=== PATIENT | female | born 1980 | race Caucasian/White ===

== ENCOUNTER 2021-12-24 14:01 | Outpatient (CLI) | payer OTHER, SELFPAY ==
[2021-12-24 22:17] LABS: SARS PCR* POSITIVE SARS-CoV-2 (Negative)
[2021-12-24 22:42] LABS: C Reactive Protein* 1.2 mg/dL (0.5-1.0)
[2021-12-24 22:58] LABS: Erythrocyte SedimentationRate* 8 mm/hr (2-20)
[2021-12-24 23:08] LABS: Eosinophils Percent Auto 2.3 % (0.0-7.0); Hematocrit 43.8 % (33.0-51.0); Hemoglobin* 15.3 gm/dL (12.0-16.0); Lymphocytes Percent Auto 27.8 % (20-44); Mean Corpuscular HGB Conc 35 gm/dL (32-36); Mean Corpuscular Hemoglobin 30 pg (26-34); Mean Corpuscular Volume 84 fL (80-100); Monocytes Percent Auto 18.5 % (0.0-11.0); Neutrophils Percent Auto 50.4 % (42.0-72.0); Platelet Count* 242 K/uL (140-440); RDW Coefficient of Variation % 12.3 % (11.5-15.5); Red Blood Count 5.19 m/uL (4.00-5.20)
[2021-12-24 23:16] LABS: Slide Review Reflex No
== END 2021-12-24 14:02 | disposition home or self-care (01) ==
PROVIDERS: PCP Nurse Practitioner Family; Visit Provider Nurse Practitioner Family
DX: R51.9 Headache, unspecified (principal); R50.9 Fever, unspecified; U07.1 COVID-19
CPT/HCPCS: 36415; 85025; 85651; 86140; 87635

== ENCOUNTER 2022-01-31 11:05 | Outpatient (CLI) | payer OTHER, SELFPAY | END 2022-01-31 11:06 | disposition home or self-care (01) | LOC: KYNREF 11:05 | PROVIDERS: PCP Nurse Practitioner Family; Visit Provider Nurse Practitioner Family | DX: N39.0 Urinary tract infection, site not specified (principal) | CPT/HCPCS: 87086; 87186 ==

== ENCOUNTER 2023-01-06 09:21 | Outpatient (CLI) | payer OTHER, SELFPAY | END 2023-01-06 09:22 | disposition home or self-care (01) | PROVIDERS: PCP Nurse Practitioner Family; Visit Provider Nurse Practitioner Family | DX: R53.83 Other fatigue (principal); R79.89 Other specified abnormal findings of blood chemistry; R51.9 Headache, unspecified; Z13.0 Encounter for screening for diseases of the blood and blood-forming organs and certain disorders involving the immune mechanism | CPT/HCPCS: 80053; 80061; 82607; 83735; 84443; 85025 ==